=== PATIENT | female | born 1965 | race Caucasian/White ===

== ENCOUNTER → 2017-09-22 09:26 | Outpatient (CLI) | payer BC, SELFPAY ==
--- NOTE | 2017-09-22 09:31 | RAD_ITS ---
STUDY: X-RAY - CERVICAL SPINE REASON FOR EXAM: Female, 52 years old. Cervical pain. TECHNIQUE: 6 view(s) of the cervical spine were obtained including oblique views. COMPARISON: None FINDINGS: Normal anterior atlantoaxial articulation. Normal odontoid process. There is straightening of the normal cervical lordosis. Disc space narrowing and anterior spondylosis at the C5-C6 and C6-C7 level. Normal disc space heights. Normal visualized intervertebral neuroforamina. The soft tissue structures are unremarkable. RAD/Cerv Spine 4 or 5 Views IMPRESSION: Straightening of the normal cervical lordosis. Spondylosis and disc space narrowing at the C5-C6 and C6-C7 levels. Electronically Signed: Elias Constantino MD at 14:16 EST Tel [phone], Service support ,
--- NOTE | 2017-09-22 09:31 | RAD_ITS ---
STUDY: X-RAY - RIGHT SHOULDER REASON FOR EXAM: Female, 52 years old. Shoulder pain. TECHNIQUE: 4 view(s) of the shoulder. COMPARISON: None. FINDINGS: Normal glenohumeral articulation. Normal acromioclavicular joint. Normal acromion. Normal humeral head and visualized proximal humerus. The soft tissue structures are unremarkable. Normal visualized pulmonary apex. RAD/Shoulder min 2 Views IMPRESSION: Normal x-ray examination of the shoulder. Electronically Signed: Elias Constantino MD at 14:17 EST Tel [phone], Service support ,
== END ==
PROVIDERS: Family Provider Student in an Organized Health Care Education/Training Program; PCP Student in an Organized Health Care Education/Training Program; Visit Provider Nurse Practitioner Family
DX: M54.2 Cervicalgia (principal); M25.519 Pain in unspecified shoulder
CPT/HCPCS: 72050; 73030

== ENCOUNTER → 2017-11-22 08:10 | Outpatient (CLI) | payer BC, SELFPAY ==
--- NOTE | 2017-11-22 08:18 | RAD_ITS ---
STUDY: X-RAY - LUMBAR SPINE REASON FOR EXAM: Female, 52 years old. Low back pain TECHNIQUE: 5 view(s) of the lumbar spine were obtained. COMPARISON: None FINDINGS: Normal lumbar lordosis. There is no substantial scoliosis. There is a normal alignment of the vertebrae. Normal vertebral bodies and mild sclerosis of the endplates with anterior spurring L1-2, less T12-L1, L2-L3. Normal disc space heights. Mild facet sclerosis L4-5, 5 S1. The soft tissue structures are unremarkable. RAD/L/S Spine Min 4 Views IMPRESSION: Degenerative changes as above. Electronically Signed: Génesis Celestin MD at 2:51 EDT , Service support ,
== END ==
PROVIDERS: Family Provider Student in an Organized Health Care Education/Training Program; PCP Student in an Organized Health Care Education/Training Program; Visit Provider Nurse Practitioner Family
DX: M54.5 Low back pain (principal)
CPT/HCPCS: 72110

== ENCOUNTER → 2018-05-25 11:40 | Outpatient (CLI) | payer BC, SELFPAY ==
[2018-05-25 14:05] LABS: Absolute Lymphocyte Count 1.57 X10^3/ul (0.83-4.51); Absolute Neutrophil Count 4.3 X10^3/uL (2.0-7.7); Basophil# 0.01 X10^3/uL; Basophil% 0.1 % (0-1); Eosinophil# 0.84 X10^3/uL; Eosinophils% 11.7 % (0-5); Hematocrit 40.2 % (37-47); Hemoglobin 12.4 g/dl (12.0-15.0); Lymphocyte # 1.57 X10^3/ul (4.0); Lymphocyte % 21.8 % (19-41); Mean Corp Hgb Conc 30.8 g/gl (32-36); Mean Corpuscular Hgb 28.4 pg (27.0-32.0); Mean Corpuscular Volume 92.2 fL (81-99); Mean Platelet Vol. 11.1 fl (6.2-12.0); Monocyte# 0.48 X10^3/uL; Monocyte% 6.7 % (0-10); Neutrophil # 4.29 X10^3/uL (2.7-7.7); Neutrophil % 59.4 % (47-70); Platelet Count 277 K/mm3 (150-450); RBC Distribution Width CV 13.5 % (11.6-14.6); Red Blood Count 4.36 M/mm3 (4.2-5.4); White Blood Count 7.2 K/mm3 (4.4-11.0)
[2018-05-25 14:06] LABS: POSITIVE COUNT NO; POSITIVE DIFFERENTIAL NO; POSITIVE MORPHOLOGY NO
[2018-05-25 14:48] LABS: ALB/GLOB Ratio 1.1 RATIO (0.9-2.4); AST(SGOT) 11 U/L (15-37); Alanine Aminotransfer ALT/SGPT 23 U/L (13-56); Albumin, Serum 3.9 g/dL (3.2-5.0); Alkaline Phosphatase 96 U/L (45-117); Anion Gap 7 (5-15); BUN 32 mg/dL (7-18); BUN/Creat Ratio 30.2 RATIO (10-20); Calcium,Total 9.2 mg/dL (8.5-10.1); Chloride 107 mmol/L (98-107); Creatinine, Serum 1.06 mg/dL (0.55-1.02); EST Glomerular Filtration Rate 58 mL/min (>60); Est Glom Filt Rate - Afr Amer 70 mL/min (>60); Globulin 3.6 g/dL (2.2-4.2); Glucose 94 mg/dL (74-106); Potassium 4.7 mmol/L (3.5-5.1); Protein, Total 7.5 g/dL (6.4-8.2); Sodium Level 142 mmol/L (136-145)
== END ==
PROVIDERS: Family Provider Student in an Organized Health Care Education/Training Program; PCP Student in an Organized Health Care Education/Training Program; Referring Provider Internal Medicine Rheumatology; Visit Provider Internal Medicine Rheumatology
DX: M06.4 Inflammatory polyarthropathy (principal); M79.7 Fibromyalgia; E11.9 Type 2 diabetes mellitus without complications; I10 Essential (primary) hypertension; M19.071 Primary osteoarthritis, right ankle and foot; Q66.7 Congenital pes cavus; K76.0 Fatty (change of) liver, not elsewhere classified
CPT/HCPCS: 36415; 80053; 85025

== ENCOUNTER → 2018-09-13 10:30 | Outpatient (CLI) | payer BC, SELFPAY ==
[2016-10-05 10:55] VITALS: BMI 31.0
[2018-09-13 12:48] LABS: ALB/GLOB Ratio 1.2 RATIO (0.9-2.4); AST(SGOT) 14 U/L (15-37); Alanine Aminotransfer ALT/SGPT 24 U/L (13-56); Albumin, Serum 4.1 g/dL (3.2-5.0); Alkaline Phosphatase 83 U/L (45-117); Anion Gap 9 (5-15); BUN 27 mg/dL (7-18); BUN/Creat Ratio 29.1 RATIO (10-20); Calcium,Total 9.3 mg/dL (8.5-10.1); Chloride 105 mmol/L (98-107); Creatinine, Serum 0.93 mg/dL (0.55-1.02); EST Glomerular Filtration Rate 67 mL/min (>60); Est Glom Filt Rate - Afr Amer 81 mL/min (>60); Globulin 3.5 g/dL (2.2-4.2); Glucose 83 mg/dL (74-106); Potassium 4.5 mmol/L (3.5-5.1); Protein, Total 7.6 g/dL (6.4-8.2); Sodium Level 141 mmol/L (136-145)
[2018-09-13 13:06] LABS: Absolute Neutrophil Count 2.6 X10^3/uL (2.0-7.7); Basophil# 0.02 X10^3/uL; Basophil% 0.4 % (0-1); Eosinophils% 15.3 % (0-5); Hematocrit 38.6 % (37-47); Hemoglobin 12.1 g/dl (12.0-15.0); Lymphocyte % 28.6 % (19-41); Mean Corp Hgb Conc 31.3 g/gl (32-36); Mean Corpuscular Hgb 29.2 pg (27.0-32.0); Mean Platelet Vol. 11.4 fl (6.2-12.0); Monocyte# 0.35 X10^3/uL; Monocyte% 6.7 % (0-10); Neutrophil # 2.56 X10^3/uL (2.7-7.7); Neutrophil % 48.8 % (47-70); Platelet Count 217 K/mm3 (150-450); RBC Distribution Width CV 13.1 % (11.6-14.6); Red Blood Count 4.15 M/mm3 (4.2-5.4); White Blood Count 5.2 K/mm3 (4.4-11.0)
[2018-09-13 13:07] LABS: POSITIVE COUNT NO; POSITIVE DIFFERENTIAL NO; POSITIVE MORPHOLOGY NO
== END ==
PROVIDERS: Family Provider Student in an Organized Health Care Education/Training Program; PCP Student in an Organized Health Care Education/Training Program; Referring Provider Internal Medicine Rheumatology; Visit Provider Internal Medicine Rheumatology
DX: M06.09 Rheumatoid arthritis without rheumatoid factor, multiple sites (principal); M79.7 Fibromyalgia; M19.071 Primary osteoarthritis, right ankle and foot; Q66.7 Congenital pes cavus; K76.0 Fatty (change of) liver, not elsewhere classified; I10 Essential (primary) hypertension; E11.9 Type 2 diabetes mellitus without complications; Z79.899 Other long term (current) drug therapy
CPT/HCPCS: 36415; 80053; 85025

== ENCOUNTER → 2018-12-28 15:28 | Outpatient (CLI) | payer BC, SELFPAY ==
[2016-10-05 10:55] VITALS: BMI 31.0
[2018-12-28 17:23] LABS: Absolute Lymphocyte Count 1.86 X10^3/ul (0.83-4.51); Absolute Neutrophil Count 2.7 X10^3/uL (2.0-7.7); Basophil# 0.02 X10^3/uL; Basophil% 0.3 % (0-1); Eosinophil# 0.81 X10^3/uL; Eosinophils% 14.1 % (0-5); Hematocrit 36.3 % (37-47); Hemoglobin 11.3 g/dl (12.0-15.0); Lymphocyte # 1.86 X10^3/ul (4.0); Lymphocyte % 32.5 % (19-41); Mean Corp Hgb Conc 31.1 g/gl (32-36); Mean Corpuscular Hgb 27.8 pg (27.0-32.0); Mean Corpuscular Volume 89.2 fL (81-99); Mean Platelet Vol. 10.8 fl (6.2-12.0); Monocyte# 0.34 X10^3/uL; Monocyte% 5.9 % (0-10); Neutrophil % 47.2 % (47-70); Platelet Count 229 K/mm3 (150-450); RBC Distribution Width CV 12.7 % (11.6-14.6); RBC Distribution Width SD 40.6 fl (35.1-43.9); Red Blood Count 4.07 M/mm3 (4.2-5.4); White Blood Count 5.7 K/mm3 (4.4-11.0)
[2018-12-28 17:26] LABS: POSITIVE COUNT NO; POSITIVE DIFFERENTIAL NO; POSITIVE MORPHOLOGY NO
[2018-12-28 17:47] LABS: ALB/GLOB Ratio 1.1 RATIO (0.9-2.4); AST(SGOT) 21 U/L (15-37); Alanine Aminotransfer ALT/SGPT 28 U/L (13-56); Albumin, Serum 3.7 g/dL (3.2-5.0); Alkaline Phosphatase 99 U/L (45-117); Anion Gap 6 (5-15); BUN 28 mg/dL (7-18); BUN/Creat Ratio 23.3 RATIO (10-20); Calcium,Total 8.6 mg/dL (8.5-10.1); Chloride 103 mmol/L (98-107); EST Glomerular Filtration Rate 50 mL/min (>60); Est Glom Filt Rate - Afr Amer 60 mL/min (>60); Globulin 3.4 g/dL (2.2-4.2); Glucose 180 mg/dL (74-106); Potassium 4.1 mmol/L (3.5-5.1); Protein, Total 7.1 g/dL (6.4-8.2); Sodium Level 136 mmol/L (136-145)
== END ==
PROVIDERS: Family Provider Student in an Organized Health Care Education/Training Program; PCP Student in an Organized Health Care Education/Training Program; Referring Provider Internal Medicine Rheumatology; Visit Provider Internal Medicine Rheumatology
DX: M06.09 Rheumatoid arthritis without rheumatoid factor, multiple sites (principal); Z79.899 Other long term (current) drug therapy; M79.7 Fibromyalgia; M19.071 Primary osteoarthritis, right ankle and foot; Q66.7 Congenital pes cavus; K76.0 Fatty (change of) liver, not elsewhere classified; I10 Essential (primary) hypertension; E11.9 Type 2 diabetes mellitus without complications
CPT/HCPCS: 36415; 80053; 85025

== ENCOUNTER → 2019-03-14 09:50 | Outpatient (CLI) | payer BC, SELFPAY ==
[2016-10-05 10:55] VITALS: BMI 31.0
[2019-03-14 12:18] LABS: Absolute Lymphocyte Count 1.99 X10^3/uL (0.83-4.51); Basophil% 0.4 % (0-1); Eosinophils% 1.8 % (0-5); Hematocrit 37.3 % (37-47); Lymphocyte # 1.99 X10^3/ul (4.0); Lymphocyte % 36.4 % (19-41); Mean Corp Hgb Conc 32.2 g/dL (32-36); Mean Corpuscular Hgb 29.2 pg (27.0-32.0); Mean Corpuscular Volume 90.8 fL (81-99); Mean Platelet Vol. 11.1 fl (6.2-12.0); Monocyte# 0.32 X10^3/uL; Monocyte% 5.9 % (0-10); Neutrophil # 3.01 X10^3/uL (2.7-7.7); Platelet Count 212 K/mm3 (150-450); RBC Distribution Width SD 43.1 fl (35.1-43.9); Red Blood Count 4.11 M/mm3 (4.2-5.4); White Blood Count 5.5 K/mm3 (4.4-11.0)
[2019-03-14 12:19] LABS: Basophil# 0.02 X10^3/uL; NRBC Flagged by Analyzer 0 % (0-5)
[2019-03-14 12:44] LABS: AST(SGOT) 23 U/L (15-37); Alanine Aminotransfer ALT/SGPT 32 U/L (13-56); Albumin, Serum 3.7 g/dL (3.2-5.0); Alkaline Phosphatase 81 U/L (45-117); Anion Gap 8 (5-15); BUN 18 mg/dL (7-18); BUN/Creat Ratio 16.7 RATIO (10-20); Calcium,Total 9.5 mg/dL (8.5-10.1); Chloride 102 mmol/L (98-107); Creatinine, Serum 1.08 mg/dL (0.55-1.02); EST Glomerular Filtration Rate 56 mL/min (>60); Est Glom Filt Rate - Afr Amer 68 mL/min (>60); Globulin 3.6 g/dL (2.2-4.2); Glucose 92 mg/dL (74-106); Potassium 4.5 mmol/L (3.5-5.1); Protein, Total 7.3 g/dL (6.4-8.2); Sodium Level 139 mmol/L (136-145)
== END ==
PROVIDERS: Family Provider Student in an Organized Health Care Education/Training Program; PCP Student in an Organized Health Care Education/Training Program; Referring Provider Internal Medicine Rheumatology; Visit Provider Internal Medicine Rheumatology
DX: M06.09 Rheumatoid arthritis without rheumatoid factor, multiple sites (principal); M19.071 Primary osteoarthritis, right ankle and foot; M79.7 Fibromyalgia; Q66.7 Congenital pes cavus; K76.0 Fatty (change of) liver, not elsewhere classified; E11.9 Type 2 diabetes mellitus without complications; I10 Essential (primary) hypertension; Z79.899 Other long term (current) drug therapy
CPT/HCPCS: 36415; 80053; 85025

== ENCOUNTER → 2022-01-04 | Outpatient (CLI) | payer OTHER, SELFPAY ==
[2022-01-04 12:31] LABS: Absolute Lymphocyte Count 1.79 X10^3/uL (0.83-4.51); Absolute Neutrophil Count 3.4 X10^3/uL (2.0-7.7); Basophil# 0.04 X10^3/uL; Basophil% 0.7 % (0-1); Eosinophil# 0.11 X10^3/uL; Eosinophils% 1.9 % (0-5); Hematocrit 37.9 % (37-47); Hemoglobin 11.6 g/dL (12.0-15.0); Lymphocyte # 1.79 X10^3/ul (0.83-4.51); Lymphocyte % 31.1 % (19-41); Mean Corp Hgb Conc 30.6 g/dL (32-36); Mean Corpuscular Hgb 28.7 pg (27.0-32.0); Mean Corpuscular Volume 93.8 fL (81-99); Mean Platelet Vol. 11.1 fl (6.2-12.0); Monocyte# 0.35 X10^3/uL; Monocyte% 6.1 % (0-10); NRBC Flagged by Analyzer 0 % (0-5); Neutrophil # 3.44 X10^3/uL (2.7-7.7); Neutrophil % 59.9 % (47-70); Platelet Count 246 K/mm3 (150-450); RBC Distribution Width CV 13.2 % (11.6-14.6); RBC Distribution Width SD 45.5 fl (35.1-43.9); Red Blood Count 4.04 M/mm3 (4.2-5.4); White Blood Count 5.8 K/mm3 (4.4-11.0)
[2022-01-04 12:52] LABS: AST(SGOT) 15 U/L (15-37); Alanine Aminotransfer ALT/SGPT 25 U/L (13-56); Albumin, Serum 3.7 g/dL (3.2-5.0); Alkaline Phosphatase 68 U/L (45-117); Anion Gap 4 (5-15); BUN 37 mg/dL (7-18); BUN/Creat Ratio 26.6 RATIO (10-20); Calcium,Total 9.4 mg/dL (8.5-10.1); Chloride 107 mmol/L (98-107); Creatinine, Serum 1.39 mg/dL (0.55-1.02); EST Glomerular Filtration Rate 42 mL/min (>60); Est Glom Filt Rate - Afr Amer 50 mL/min (>60); Globulin 3.6 g/dL (2.2-4.2); Glucose 84 mg/dL (74-106); Potassium 4.4 mmol/L (3.5-5.1); Protein, Total 7.3 g/dL (6.4-8.2); Sodium Level 140 mmol/L (136-145)
== END | disposition home or self-care (01) ==
LOC: MTLAB 10:06
PROVIDERS: PCP Student in an Organized Health Care Education/Training Program; Referring Provider Internal Medicine Rheumatology; Visit Provider Internal Medicine Rheumatology
DX: M06.09 Rheumatoid arthritis without rheumatoid factor, multiple sites (principal); E11.9 Type 2 diabetes mellitus without complications; M79.7 Fibromyalgia; M77.11 Lateral epicondylitis, right elbow; M19.071 Primary osteoarthritis, right ankle and foot; Q66.70 Congenital pes cavus, unspecified foot; K76.0 Fatty (change of) liver, not elsewhere classified; I10 Essential (primary) hypertension; Z79.899 Other long term (current) drug therapy
CPT/HCPCS: 36415; 80053; 85025

== ENCOUNTER → 2022-02-14 | Outpatient (CLI) | payer OTHER, SELFPAY ==
[2022-02-14 12:48] LABS: ALB/GLOB Ratio 1.2 RATIO (0.9-2.4); AST(SGOT) 19 U/L (15-37); Alanine Aminotransfer ALT/SGPT 24 U/L (13-56); Albumin, Serum 3.7 g/dL (3.2-5.0); Alkaline Phosphatase 69 U/L (45-117); Anion Gap 5 (5-15); BUN 19 mg/dL (7-18); BUN/Creat Ratio 14.8 RATIO (10-20); Calcium,Total 8.9 mg/dL (8.5-10.1); Chloride 108 mmol/L (98-107); Creatinine, Serum 1.28 mg/dL (0.55-1.02); EST Glomerular Filtration Rate 46 mL/min (>60); Est Glom Filt Rate - Afr Amer 55 mL/min (>60); Globulin 3.2 g/dL (2.2-4.2); Glucose 92 mg/dL (74-106); Protein, Total 6.9 g/dL (6.4-8.2); Sodium Level 141 mmol/L (136-145)
== END | disposition home or self-care (01) ==
PROVIDERS: PCP Student in an Organized Health Care Education/Training Program; Referring Provider Internal Medicine Rheumatology; Visit Provider Internal Medicine Rheumatology
DX: M06.09 Rheumatoid arthritis without rheumatoid factor, multiple sites (principal); E11.9 Type 2 diabetes mellitus without complications; M79.7 Fibromyalgia; M77.11 Lateral epicondylitis, right elbow; M19.071 Primary osteoarthritis, right ankle and foot; Q66.70 Congenital pes cavus, unspecified foot; K76.0 Fatty (change of) liver, not elsewhere classified; I10 Essential (primary) hypertension; Z79.899 Other long term (current) drug therapy
CPT/HCPCS: 36415; 80053

== ENCOUNTER 2022-04-25 13:08 | Emergency (ER) | payer OTHER, SELFPAY ==
[2022-04-25 13:10] VITALS: BP 168/62; PULSE 98; RESP 15; TEMP 36.5; O2SAT 99; BMI 32.3
[2022-04-25 13:12] VITALS: BP 168/62; PULSE 98; RESP 15; TEMP 36.5; O2SAT 99
--- NOTE | 2022-04-25 15:00 | EKG12_ITS ---
Test Reason : DIAHREA Blood Pressure : / mmHG Vent. Rate : 099 BPM Atrial Rate : 099 BPM P-R Int : 158 ms QRS Dur : 080 ms QT Int : 342 ms P-R-T Axes : 023 003 032 degrees QTc Int : 438 ms Normal sinus rhythm Normal ECG Confirmed by LANDRY TRINIDAD, VANNESSA ([id number]), legal editor FELIPE SOLOMON ([id number]) on 04/27/2022 10:55:55 AM Referred By: Confirmed By:VANNESSA ALATORRE MD
--- NOTE | 2022-04-25 15:01 | EX.ED.DYSGE1 ---
HPI History of Present Illness Chief Complaint: Diarrhea Detail of Chief Complaint: Documented fever to 103.0 ?F Informant: patient Onset/Context/Timing Onset: Days (Onset of illness April 19) Context: Onset with activity and Sudden Onset Timing: Intermittent Quality: Waxing and waning fever. Myalgias arthralgias and headache Location: Generalized Current Severity: Mild Maximum Severity: Severe Worsened by: Nothing Relieved by: Nothing Associated Symptoms Associated Symptoms: Myalgias arthralgias and nausea and vomiting x2 Narrative Narrative: Patient is a 57-year-old woman whose had document temperature 103.0 ?F. She has chronic diarrhea. That is not her chief complaint. She vomited at the onset of illness and vomited once today. She does complain of bitemporal headache. She denies double vision, blurred vision loss of vision. [place] photophobia. She does have neck pain secondary to surgery. The pain is no different. She does report port roaring in her ears. This is been intermittent for the past 3 years. She also describes symptoms consistent with benign positional vertigo. She denies rhinorrhea, congestion postnasal drainage. Denies sore throat. She denies cough or shortness of breath. Denies chest pain. She does endorse nausea vomiting as previously mentioned. The diarrhea is chronic. There is no blood or mucus in her diarrhea. She denies dysuria, frequency, urgency or hematuria. She did administer her last immunosuppressive meds for rheumatoid on April 19. Fever started afterwards. Patient states has had meningitis in the past. This headache is nowhere near as severe. There are no alleviating or exacerbating factors. Prior similar symptoms: No Recent Illness/Hospitalization: No [facility] Medical History Tibia fracture Home Medications atorvastatin 20 mg tablet 20 mg PO QHS 10/31/15 [History Last Taken 10/30/15 21:00] duloxetine 60 mg capsule,delayed release 60 mg PO DAILY 10/31/15 [History Last Taken 10/30/15 21:00] lisinopril 20 mg-hydrochlorothiazide 12.5 mg tablet (Zestoretic) 1 ea PO DAILY 10/31/15 [History Last Taken 10/30/15 21:00] metformin 1,000 mg tablet 1,000 mg PO BID 10/31/15 [History Last Taken 10/31/15 09:00] insulin glargine U-300 conc 300 unit/mL (1.5 mL) subcutaneous pen (Toujeo SoloStar U-300 Insulin) 44 unit SQ QHS 09/28/16 [History Last Taken Unknown] insulin lispro 100 unit/mL subcutaneous pen (Humalog KwikPen (U-100) Insulin) 10 unit SQ BID 09/28/16 [History Last Taken Unknown] ranitidine HCl 300 mg tablet (Zantac) 300 mg PO PRN PRN Indigestion 09/28/16 [History Last Taken Unknown] acetaminophen 500 mg tablet 1,000 mg PO Q8 10/05/16 [Rx Last Taken Unknown] nut.tx.gluc.intol,lac-free,soy 120 ml PO BID 10/05/16 [Rx Last Taken Unknown] oxycodone 5 mg tablet 5 - 10 mg PO Q4H PRN PRN Pain #60 tabs 10/05/16 [Rx Last Taken Unknown] sulfamethoxazole 800 mg-trimethoprim 160 mg tablet 1 tab PO BID #20 TABLETS 04/25/22 [Rx Last Taken Unknown] Allergy/AdvReac Type Severity Reaction Status Date / Time No Known Allergies Allergy Verified 04/25/22 13:12 Social History (Updated 04/25/22 @ 15:[address] Sergio Salgado MD) household members: spouse Smoking Status: Never smoker substance use type: does not use ROS ROS ED Constitutional Constitutional ED: Reports chills and fever(s); Denies sweats or weight loss Eyes Eyes: Denies blurry vision, change in vision or diplopia ENT ENT ED: Denies ear pain, rhinorrhea or sore throat Cardiovascular Cardiovascular: Denies chest pain or palpitations Respiratory/Chest Respiratory/Chest: Denies cough, dyspnea or dyspnea on exertion Gastrointestinal Gastrointestinal: Reports abdominal pain, diarrhea, nausea and vomiting; Denies constipation or melena Genitourinary Genitourinary ED: Denies dysuria, hematuria or urinary frequency Musculoskeletal Musculoskeletal: Reports neck pain; Denies arthralgias, back pain or myalgias Integumentary Denies Abrasions or rash Neurologic Neurologic: Reports headache(s); Denies paresthesias or weakness Endocrine Endocrinology: Denies cold intolerance or heat intolerance Hematologic/Lymphatic Hematologic/Lymphatic: Denies easy bleeding, easy bruising or lymphadenopathy EXAM Physical Exam Const Vital Signs: 04/25/22 13:10 04/25/22 13:12 04/25/22 15:41 Temperature 97.7 F L 97.7 F L 101.1 F H Temperature Source Temporal Temporal Oral Pulse Rate 98 98 96 Respiratory Rate 15 15 18 Blood Pressure 168/62 H 168/62 H 160/59 H Blood Pressure Mean 97 97 92 Pulse Ox 99 99 98 Oxygen Delivery Method Room Air Room Air Room Air 04/25/22 16:53 Temperature 99.4 F H Temperature Source Oral Pulse Rate 93 Respiratory Rate 18 Blood Pressure 135/60 H Blood Pressure Mean 85 Pulse Ox 95 Oxygen Delivery Method Room Air Positive well nourished, well developed and obese; Negative for cachectic or contractures Constitutional Narrative: Patient does not appear toxic but does appear ill. General Appearance ED: well developed; Negative for cachectic, contractures, cyanotic or diaphoretic Nutritional Appearance: obese; Negative for cachectic HEENT Reports TM's clear and dry mucous membranes HEENT Narrative: Sclera is anicteric. Conjunctive is pink. Extract muscle intact. Pupils equal round reactive. Tympanic Membrane ED: Yes TM's clear Mouth ED: Yes dry mucous membranes Mouth: dry mucous membranes Eyes PERRL and EOMs intact bilaterally General Eye ED: Negative for pale conjunctiva or scleral icterus Neck no lymphadenopathy, supple and no JVD Resp normal respiratory effort and clear to auscultation bilaterally Cardio regular rate, regular rhythm, S1 normal heart sound, S2 normal heart sound and no murmurs GI normal to inspection, nondistended, normoactive bowel sounds, non-tender, non-distended and no masses; Negative for hepatosplenomegaly Back/Spine no CVA tenderness Extremity normal to inspection General Extremety ED: Negative for edema or tenderness General Extremity: Negative for edema Neuro oriented x3, CN's II-XII intact bilaterally and no sensory deficits noted Sensorium / Orientation: alert Motor Exam: strength 5/5 throughout Psych mental status grossly normal Skin no rashes or lesions noted, no wounds and skin turgor normal MDM MDM MDM Narrative Medical decision making narrative: With documented fever more than 1 occasion on immunosuppressive meds infectious work-up was undertaken to determine etiology. She is also had myalgias arthralgias and fevers because of her rheumatoid arthritis. For this reason we will obtain an ESR. Patient does have history of insulin-dependent diabetes as well as hypertension. She states she has not taken her antihypertensive meds today and believes this may be the cause of her headache. Blood work was obtained to assess for anemia, determine white count, determine renal function and electrolytes. Chest x-ray is obtained to evaluate for pneumonia even though there were no abnormal auscultatory findings. Lab Data Attestation: I reviewed the patient's lab results. Lab results narrative: White count is normal. Coags are normal. There is no evidence of endorgan dysfunction urine is consistent with infection. Patient did receive dose of Rocephin in the emergency department. She was discharged prescription for Bactrim x10 days. She feels comfortable going home. Patient does not meet criteria for full admission. Labs: Laboratory Results - last 24 hr 04/25/22 04/25/22 04/25/22 15:15 15:15 15:15 WBC 10.1 RBC 3.80 L Hgb 11.1 L Hct 34.3 L MCV 90.3 MCH 29.2 MCHC 32.4 RDW Std Deviation 41.4 RDW Coeff of Tabby 12.5 Plt Count 300 MPV 10.4 Immature Gran % (Auto) 0.400 Neut % (Auto) 77.0 H Lymph % (Auto) 13.7 L [place] % (Auto) 8.7 Eos % (Auto) 0.0 Baso % (Auto) 0.2 Absolute Neuts (auto) 7.8 H Absolute Lymphs (auto) 1.39 Nucleated RBC % 0 PT 14.7 INR 1.2 APTT 36.3 H Sodium 134 L Potassium 4.4 Chloride 97 L Carbon Dioxide 26.0 Anion Gap 11 BUN 28 H Creatinine 1.39 H Estim Creat Clear Calc 35.32 Est GFR (MDRD) Af Amer 50 L Est GFR (MDRD) Non-Af 42 L BUN/Creatinine Ratio 20.1 H Glucose 122 H Lactic Acid Calcium 9.4 Total Bilirubin 0.80 AST 27 ALT 25 Alkaline Phosphatase 92 Total Protein 8.2 Albumin 3.1 L Globulin 5.1 H Albumin/Globulin Ratio 0.6 L Urine Color Urine Clarity Urine pH Ur Specific [place] Urine Protein Urine Glucose (UA) Urine Ketones Urine Occult Blood Urine Nitrite Urine Bilirubin Urine Urobilinogen Ur Leukocyte Esterase Urine RBC Urine WBC Ur Squamous Epith Cells Urine Bacteria Urine Mucus 04/25/22 04/25/22 15:15 15:53 WBC RBC Hgb Hct MCV MCH MCHC RDW Std Deviation RDW Coeff of Tabby Plt Count MPV Immature Gran % (Auto) Neut % (Auto) Lymph % (Auto) [place] % (Auto) Eos % (Auto) Baso % (Auto) Absolute Neuts (auto) Absolute Lymphs (auto) Nucleated RBC % PT INR APTT Sodium Potassium Chloride Carbon Dioxide Anion Gap BUN Creatinine Estim Creat Clear Calc Est GFR (MDRD) Af Amer Est GFR (MDRD) Non-Af BUN/Creatinine Ratio Glucose Lactic Acid 1.0 Calcium Total Bilirubin AST ALT Alkaline Phosphatase Total Protein Albumin Globulin Albumin/Globulin Ratio Urine Color Yellow Urine Clarity Clear Urine pH 5.0 Ur Specific [place] 1.025 Urine Protein 30 H Urine Glucose (UA) Normal Urine Ketones 5 H Urine Occult Blood 150 H Urine Nitrite Negative Urine Bilirubin Negative Urine Urobilinogen 1 H Ur Leukocyte Esterase 100 H Urine RBC 0-5 SEEN Urine WBC 5-10 SEEN Ur Squamous Epith Cells 0-5 SEEN Urine Bacteria 3+ Urine Mucus 0 SEEN Radiography Chest X-Ray - ED: 2 View (2 view chest x-ray is independently reviewed and interpreted by me at 08/12/2003 as negative for acute process. Cardiac silhouette and size unremarkable. There is chronic changes noted. Perihilar regions normal. [place] structures are unremarkable.) Diagnostic Testing: Clinical Impression(s) from Imaging Studies Chest X-Ray 04/25/22 15:25 IMPRESSION: Mild bronchovascular prominence. Electronically Signed: Omar Angel MD at 16:08 EDT , EKG Initial EKG: Attestation: I personally reviewed and interpreted this EKG as follows: Interpretation: Sinus Rhythm (The EKG is normal with a ventricular rate of 99. NH interval is 158 ms. Cures duration 80 ms. QT duration 342 ms. [place] is normal) Discharge Plan Triage Chief Complaint: Diarrhea ED Provider: Sergio Salgado Dx/Rx/DC Orders Clinical Impression: Complicated urinary tract infection, Fever, Immunosuppression due to drug therapy, Renal insufficiency Instructions: ED Cystitis Female Adult Prescriptions: New sulfamethoxazole-trimethoprim [sulfamethoxazole-trimethoprim] 800-160 mg tablet 1 tab PO BID Qty: 20 0RF No Action atorvastatin 20 MG tablet 20 mg PO QHS Label Comments: cholestrol lisinopril-hydrochlorothiazide [Zestoretic] 1 EACH tablet 1 ea PO DAILY Label Comments: blood pressure metformin 1,000 MG tablet 1,000 mg PO BID Label Comments: diabetes duloxetine 60 MG capsule 60 mg PO DAILY Label Comments: fibromyalgia insulin lispro [Humalog KwikPen Insulin] 100 UNIT/ML insulin pen 10 unit SQ BID Label Comments: BREAKFAST AND LUNCH insulin glargine U-300 conc [Toujeo SoloStar U-300 Insulin] 300 UNIT/ML insulin pen 44 unit SQ QHS ranitidine HCl [Zantac] 300 MG tablet 300 mg PO PRN PRN (Reason: Indigestion) acetaminophen 500 MG tablet 1,000 mg PO Q8 0RF oxycodone 5 MG tablet 5 - 10 mg PO Q4H PRN PRN (Reason: Pain) Qty: 60 0RF nut.tx.gluc.intol,lac-free,soy 120 ML liquid 120 ml PO BID 0RF Primary Care Provider: Oscar Bañuelos Referrals: Oscar Bañuelos DO [Primary Care Provider] - 3-5 Days if not improving Activity Restrictions/Additional Instructions: If you have a fever after 48 hours, return to the emergency department. If you feel worse, return to the emergency department. Disposition Disposition: Home, Self Care
[2022-04-25] MEDS: Ondansetron 4 MG/2 ML Vial IV (15:13)
--- NOTE | 2022-04-25 15:25 | RAD_ITS ---
INDICATION: Fever immune suppressed patient EXAMINATION/TECHNIQUE: X-RAY - XR Chest 2 Views COMPARISON: 01/25/2013. FINDINGS: Poor inspiratory effort is seen. Internal fixation of the lower cervical spine, surgical clips are seen superimposed over the right upper lung field. LINES/DEVICES: None. LUNGS: Peribronchial cuffing and bilateral hilar prominence is seen with subtle patchy air space opacification is seen No consolidation, edema or effusion. No pneumothorax. MEDIASTINUM AND CARDIOVASCULAR STRUCTURES: Cardiac silhouette not enlarged. Central airways and mediastinal contour are unremarkable. BONES AND SOFT TISSUES: Unremarkable. RAD/Chest PA and Lateral IMPRESSION: Mild bronchovascular prominence. Electronically Signed: Omar Angel MD at 16:08 EDT ,
[2022-04-25 15:38] LABS: Absolute Lymphocyte Count 1.39 X10^3/uL (0.83-4.51); Absolute Neutrophil Count 7.8 X10^3/uL (2.0-7.7); Basophil# 0.02 X10^3/uL; Basophil% 0.2 % (0-1); Hematocrit 34.3 % (37-47); Hemoglobin 11.1 g/dL (12.0-15.0); Lymphocyte # 1.39 X10^3/ul (0.83-4.51); Lymphocyte % 13.7 % (19-41); Mean Corp Hgb Conc 32.4 g/dL (32-36); Mean Corpuscular Hgb 29.2 pg (27.0-32.0); Mean Corpuscular Volume 90.3 fL (81-99); Mean Platelet Vol. 10.4 fl (6.2-12.0); Monocyte# 0.88 X10^3/uL; Monocyte% 8.7 % (0-10); NRBC Flagged by Analyzer 0 % (0-5); Neutrophil # 7.78 X10^3/uL (2.7-7.7); Platelet Count 300 K/mm3 (150-450); RBC Distribution Width CV 12.5 % (11.6-14.6); RBC Distribution Width SD 41.4 fl (35.1-43.9); White Blood Count 10.1 K/mm3 (4.4-11.0)
[2022-04-25 15:41] VITALS: BP 160/59; PULSE 96; RESP 18; TEMP 38.4; O2SAT 98
[2022-04-25 15:52] LABS: ALB/GLOB Ratio 0.6 RATIO (0.9-2.4); AST(SGOT) 27 U/L (15-37); Alanine Aminotransfer ALT/SGPT 25 U/L (13-56); Albumin, Serum 3.1 g/dL (3.2-5.0); Alkaline Phosphatase 92 U/L (45-117); Anion Gap 11 (5-15); BUN 28 mg/dL (7-18); BUN/Creat Ratio 20.1 RATIO (10-20); Calcium,Total 9.4 mg/dL (8.5-10.1); Chloride 97 mmol/L (98-107); Creatinine, Serum 1.39 mg/dL (0.55-1.02); EST Glomerular Filtration Rate 42 mL/min (>60); Est Glom Filt Rate - Afr Amer 50 mL/min (>60); Estimated Creatinine Clearance 35.32 ml/min; Globulin 5.1 g/dL (2.2-4.2); Glucose 122 mg/dL (74-106); Potassium 4.4 mmol/L (3.5-5.1); Protein, Total 8.2 g/dL (6.4-8.2); Sodium Level 134 mmol/L (136-145)
[2022-04-25] MEDS: HYDROcodone Bitartrate/Apap 5/325 Tablet PO (15:56)
[2022-04-25 15:57] LABS: Mucous, Urine 0 SEEN /hpf (<or=2+)
[2022-04-25 16:02] LABS: International Normalized Ratio 1.2; Prothrombin Time (Protime)PT. 14.7 SECONDS (11.7-14.9)
[2022-04-25 16:03] LABS: Partial Thromboplast Time 36.3 Seconds (24.1-36.2)
[2022-04-25 16:09] LABS: Color, Urine Yellow (Yellow); Glucose, Dipstick Normal (Normal); Ketone-Dipstick 5 mg/dl (Negative); Leukocyte Esterase-Dipstick 100 /ul (Negative); Nitrite-Dipstick Negative (Negative); Occult Blood-Urine 150 /ul (Negative); Protein-Dipstick 30 mg/dl (Negative); Specific Gravity, Urine 1.025 (1.002-1.030); Urine Bilirubin Dipstick Negative (Negative); Urine Clarity Clear (Clear); Urine Urobilinogen 1 mg/dl (Normal)
[2022-04-25 16:34] LABS: Bacteria 3+ /hpf (None Seen); Red Blood Cells-Urine 0-5 SEEN /hpf (0-5); Squamous Epithelial Cells - UA 0-5 SEEN /hpf (5-10); White Blood Cells 5-10 SEEN /hpf (0-5)
[2022-04-25] MEDS: Ceftriaxone 1 GM/50 ML BAG IV (16:51)
[2022-04-25 16:53] VITALS: BP 135/60; PULSE 93; RESP 18; TEMP 37.4; O2SAT 95
== END 2022-04-25 17:43 | disposition home or self-care (01) ==
PROVIDERS: Emergency Provider Emergency Medicine; PCP Student in an Organized Health Care Education/Training Program; Visit Provider Emergency Medicine
DX: N39.0 Urinary tract infection, site not specified (principal); D84.821 Immunodeficiency due to drugs; M06.9 Rheumatoid arthritis, unspecified; E10.9 Type 1 diabetes mellitus without complications; Z79.4 Long term (current) use of insulin; N28.9 Disorder of kidney and ureter, unspecified; I10 Essential (primary) hypertension; Z79.84 Long term (current) use of oral hypoglycemic drugs; Z79.899 Other long term (current) drug therapy
CPT/HCPCS: 36415; 71046; 80053; 81001; 83605; 85025; 85610; 85730; 87040; 87077; 87086; 87088; 87186; 93005; 96361; 96365; 96375; 99285; J2405

== ENCOUNTER → 2022-06-16 | Outpatient (CLI) | payer OTHER, SELFPAY ==
[2022-06-16 13:24] LABS: ALB/GLOB Ratio 1.1 RATIO (0.9-2.4); AST(SGOT) 16 U/L (15-37); Alanine Aminotransfer ALT/SGPT 22 U/L (13-56); Albumin, Serum 3.7 g/dL (3.2-5.0); Alkaline Phosphatase 111 U/L (45-117); Anion Gap 6 (5-15); BUN 19 mg/dL (7-18); BUN/Creat Ratio 15.6 RATIO (10-20); Calcium,Total 9.3 mg/dL (8.5-10.1); Chloride 105 mmol/L (98-107); Creatinine, Serum 1.22 mg/dL (0.55-1.02); EST Glomerular Filtration Rate 48 mL/min (>60); Est Glom Filt Rate - Afr Amer 58 mL/min (>60); Globulin 3.5 g/dL (2.2-4.2); Glucose 185 mg/dL (74-106); Potassium 5.2 mmol/L (3.5-5.1); Protein, Total 7.2 g/dL (6.4-8.2); Sodium Level 139 mmol/L (136-145)
== END | disposition home or self-care (01) ==
LOC: MTLAB 10:01
PROVIDERS: PCP Student in an Organized Health Care Education/Training Program; Referring Provider Internal Medicine Rheumatology; Visit Provider Internal Medicine Rheumatology
DX: M06.09 Rheumatoid arthritis without rheumatoid factor, multiple sites (principal); E11.9 Type 2 diabetes mellitus without complications; Z79.899 Other long term (current) drug therapy; M79.7 Fibromyalgia; M77.11 Lateral epicondylitis, right elbow; M19.071 Primary osteoarthritis, right ankle and foot; Q66.70 Congenital pes cavus, unspecified foot; K76.0 Fatty (change of) liver, not elsewhere classified; I10 Essential (primary) hypertension
CPT/HCPCS: 36415; 80053

== ENCOUNTER 2023-01-23 12:35 | Emergency (ER) | payer OTHER, SELFPAY ==
[2023-01-23 12:38] VITALS: BP 142/74; PULSE 88; RESP 16; TEMP 35.9; O2SAT 96; BMI 33.0
[2023-01-23] MEDS: 0.9% Normal Saline 1,000 ML 1000 ML IV (13:30)
[2023-01-23 13:40] VITALS: BP 118/59; BP 126/61; BP 99/51; PULSE 80; PULSE 83; PULSE 91
[2023-01-23 13:47] LABS: Absolute Lymphocyte Count 2.05 X10^3/uL (0.83-4.51); Absolute Neutrophil Count 4.5 X10^3/uL (2.0-7.7); Basophil# 0.03 X10^3/uL; Basophil% 0.4 % (0-1); Eosinophil# 0.01 X10^3/uL; Eosinophils% 0.1 % (0-5); Hematocrit 39.5 % (37-47); Hemoglobin 12.4 g/dL (12.0-15.0); Lymphocyte # 2.05 X10^3/ul (0.83-4.51); Lymphocyte % 28.6 % (19-41); Mean Corp Hgb Conc 31.4 g/dL (32-36); Mean Corpuscular Hgb 28.4 pg (27.0-32.0); Mean Corpuscular Volume 90.6 fL (81-99); Mean Platelet Vol. 10.4 fl (6.2-12.0); Monocyte# 0.62 X10^3/uL; Monocyte% 8.6 % (0-10); NRBC Flagged by Analyzer 0 % (0-5); Neutrophil # 4.45 X10^3/uL (2.7-7.7); Neutrophil % 62.2 % (47-70); Platelet Count 236 K/mm3 (150-450); RBC Distribution Width CV 13.2 % (11.6-14.6); RBC Distribution Width SD 43.8 fl (35.1-43.9); Red Blood Count 4.36 M/mm3 (4.2-5.4); White Blood Count 7.2 K/mm3 (4.4-11.0)
[2023-01-23 13:57] LABS: Anion Gap 8 (5-15); BUN 35 mg/dL (7-18); BUN/Creat Ratio 23.6 RATIO (10-20); Calcium,Total 10.1 mg/dL (8.5-10.1); Chloride 107 mmol/L (98-107); Creatinine, Serum 1.48 mg/dL (0.55-1.02); EST Glomerular Filtration Rate 39 mL/min (>60); Est Glom Filt Rate - Afr Amer 47 mL/min (>60); Estimated Creatinine Clearance 33.17 ml/min; Glucose 89 mg/dL (74-106); Potassium 4.7 mmol/L (3.5-5.1); Sodium Level 139 mmol/L (136-145)
[2023-01-23 14:00] LABS: Bacteria 0 SEEN /hpf (None Seen); Mucous, Urine 0 SEEN /hpf (<or=2+); Red Blood Cells-Urine 0 SEEN /hpf (0-5); White Blood Cells 0 SEEN /hpf (0-5)
[2023-01-23 14:14] LABS: Color, Urine Yellow (Yellow); Glucose, Dipstick Normal (Normal); Ketone-Dipstick Negative (Negative); Leukocyte Esterase-Dipstick Negative /ul (Negative); Nitrite-Dipstick Negative (Negative); Occult Blood-Urine Negative /ul (Negative); Protein-Dipstick Negative (Negative); Specific Gravity, Urine 1.015 (1.002-1.030); Urine Bilirubin Dipstick Negative (Negative); Urine Clarity Clear (Clear); Urine Urobilinogen Normal (Normal)
[2023-01-23 14:22] LABS: Squamous Epithelial Cells - UA 0-5 SEEN /hpf (5-10)
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
[2023-01-23 15:19] VITALS: BP 121/52; PULSE 80; RESP 18; O2SAT 95
[2023-01-23 16:02] VITALS: BP 104/64; PULSE 16; O2SAT 78
[2023-01-24 07:11] LABS: Bedside Glucose 116 mg/dL (74-106)
== END 2023-01-23 16:04 | disposition home or self-care (01) ==
PROVIDERS: Emergency Provider Emergency Medicine; PCP Student in an Organized Health Care Education/Training Program; Visit Provider Emergency Medicine
DX: R55 Syncope and collapse (principal); E11.9 Type 2 diabetes mellitus without complications; Z79.4 Long term (current) use of insulin; I10 Essential (primary) hypertension; M79.7 Fibromyalgia; E66.9 Obesity, unspecified; Z68.33 Body mass index [BMI] 33.0-33.9, adult; Z79.84 Long term (current) use of oral hypoglycemic drugs; Z79.899 Other long term (current) drug therapy
CPT/HCPCS: 80048; 81001; 82962; 85025; 87086; 87088; 93005; 96360; 99284; J7030

== ENCOUNTER 2024-04-04 10:26 | Day surgery (SDC) | payer OTHER, SELFPAY ==
[2024-04-04] VITALS (9 sets, daily range): BP systolic 115–123; BP diastolic 53–64; PULSE 75–91; RESP 16–18; TEMP 35.9–36.3; O2SAT 96–100; BMI 23.1
[2024-04-04] MEDS: Lactated Ringers 1,000 ML 15 ML IV (11:07)
[2024-04-04 11:09] LABS: Hematocrit 33.2 % (37-47); Hemoglobin 10.2 g/dL (12.0-15.0); Mean Corp Hgb Conc 30.7 g/dL (32-36); Mean Corpuscular Hgb 28.3 pg (27.0-32.0); Mean Corpuscular Volume 92.2 fL (81-99); Mean Platelet Vol. 10.9 fl (6.2-12.0); Platelet Count 184 K/mm3 (150-450); RBC Distribution Width CV 13.4 % (11.6-14.6); RBC Distribution Width SD 45.7 fl (35.1-43.9); White Blood Count 4.6 K/mm3 (4.4-11.0)
[2024-04-04 11:47] LABS: AST(SGOT) 65 U/L (15-37); Alanine Aminotransfer ALT/SGPT 65 U/L (13-56); Albumin, Serum 3.2 g/dL (3.2-5.0); Alkaline Phosphatase 109 U/L (45-117); Anion Gap 5 (5-15); BUN 22 mg/dL (7-18); BUN/Creat Ratio 16.9 RATIO (10-20); Calcium,Total 9.3 mg/dL (8.5-10.1); Chloride 113 mmol/L (98-107); EST Glomerular Filtration Rate 45 mL/min (>60); Est Glom Filt Rate - Afr Amer 54 mL/min (>60); Estimated Creatinine Clearance 36.85 ml/min; Globulin 3.3 g/dL (2.2-4.2); Glucose 98 mg/dL (74-106); Potassium 3.8 mmol/L (3.5-5.1); Protein, Total 6.5 g/dL (6.4-8.2); Sodium Level 141 mmol/L (136-145)
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
--- NOTE | 2024-04-04 12:00 | EMB_PTH ---
PATIENT: MEME [place]OO[place] [facility] [id number] AGE/SX: 59/F ROOM: RE04/04/[address]: Dr. Melisa Carmichael DO : 1965 BED: DIS: 04/04/2024 SPEC #: [id number] RECD: 04/04/24 14:26 STATUS: CHITRA REVikki #: [id number] KEREN: 04/04/24 12:[address]: Melisa Carmichael DEPT: SURGICAL PATHOLOGY RECD BY: Delilah Rodriguez ENTERED: 04/05/24 07:18 SP TYPE: ENDOM BX/C VICENTE DR: Dr. Oscar Bañuelos, DO Tissues: Endometrium, NOS Procedures: Surgery Specimen Level IV HEADER OPERATION: Hysteroscopy, D&C, polypectomy PRE-OP DIAGNOSIS: Endometrial polyp TISSUE SUBMITTED: Endometrial polyp and tissue, endometrial curettings MICROSCOPIC DIAGNOSIS Endometrial polyp, polypectomy and endometrial curettings: Polypoid fragments of endometrial tissue, consistent with fragments of benign endometrial polyp with cystic atrophic changes. Fragments of benign ectocervical epithelium. See comment. Mark 04/09/2024 COMMENT Clinical correlation and appropriate follow up are necessary. Case has been reviewed in consultation with Dr. Smith who concurs with the above diagnosis. IDC:AM MICROSCOPIC DESCRIPTION Slides are reviewed. GROSS DESCRIPTION Received in fixative is one container labeled with the patient's name and designated Endometrial polyp + endometrial curetting tissue. The specimen consists of multiple irregular fragments of dixon soft tissue that in aggregate measure 5.0 x 3.0 x 0.3 cm. The specimen is totally submitted in two cassettes. 04/05/2024 TC:5 CPT:63806
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
--- NOTE | 2024-04-04 12:22 | PCM.DC ---
Discharge Instructions Diet Discharge Diet: No restrictions Activity Discharge Activity: May Drive (once you are more than 24 hours out from surgery) and May Shower (once you are more than 24 hours out from surgery) May resume sexual activity in: 1 week (nothing in the vagina and no soaking in water) Weight Bearing Status: Weight bearing as tolerated Lifting Restrictions: none Dressing / Incision Call your doctor if you observe: Fever of 101 or Higher, Coldness, Increased Pain, Numbness or Tingling, Change in Color, Inability to urinate, Inability to have a bowel movement, Using more than 1 pad per hour, Shortness of breath, Dizziness, Fainting spells, Swelling in the ankles, Chest pain, Prolonged hiccupping, Increased palpitations (irregular heartbeat), Calf discomfort and Uncontrolled pain Cleanse incision/area with: Soap & Water Follow Up Care Please Follow Up With: Melisa Carmichael DO When: 1-2 weeks for post op Test Results: Test results from this visit will be discussed in further detail at your follow-up appointment, if applicable. Discharge Plan Admission Primary Reason for Your Visit: surgery Attending Provider: Meilsa Carmichael Primary Care Provider: Oscar Bañuelos Instructions Patient Instructions: Dilation and Curettage Print Language: Bulgarian Discharge Orders/Prescriptions Prescriptions: Continued atorvastatin 20 MG tablet 40 mg PO QHS Patient Comments: cholestrol metformin 1,000 MG tablet 500 mg PO DAILY Patient Comments: diabetes duloxetine 60 MG capsule 60 mg PO BID Patient Comments: fibromyalgia Mounjaro 2.5 mg/0.5 mL pen injector 12.5 mg subcut SA metoprolol succinate 25 mg tablet extended release 24 hr 25 mg PO QHS leflunomide 10 mg tablet 20 mg PO DAILY bupropion HCl 150 mg tablet extended release 24 hr 150 mg PO DAILY zolpidem [Ambien] 5 mg tablet 5 mg PO QHS PRN (Reason: sleep) Rx Instructions: may repeat once if no response in 30-60 minutes alprazolam 1 mg tablet 1 mg PO BID PRN PRN (Reason: anxiety) Humira(CF) Pen 40 mg/0.4 mL pen injector kit 40 mg subcut .Q2WEEK Referrals / Follow Up: Oscar Bañuelos DO [Primary Care Provider] - Disposition Disposition (needs filled in before D/C Order can be placed): Home, Self Care
[2024-04-04] MEDS: Lidocaine 1% /Epi 1:100 (20ml) 20 ML Vial (12:40)
--- NOTE | 2024-04-04 12:55 | PCM.OPRPT ---
Problems Associated Problem List Diagnoses (1) Endometrial polyp: Report of Operation Date of Procedure: 04/04/24 Pre-Operative Diagnosis: Endometrial polyp Post-Operative Diagnosis: As above Surgery/Procedure Performed:: Hysteroscopy, D&C, polypectomy Description of Surgical Findings:: 1 endometrial polyp noted originating at the left uterine fundus. Atrophic appearing endometrium. Normal appearing tubal ostia. Vagina atrophy noted and no uterine descent Surgeon: Melisa Carmichael word processing supervisor: None Type of Anesthesia: MAC Special Medications: None Specimen's removed: Endometrial polyp and curettings Drains: None Estimated Blood Loss (mL): < 20 Fluids Replaced: 650 cc fluid deficit Description of Procedure: Patient was taken the operating room MAC anesthesia was induced. She was prepped and draped in the dorsal lithotomy position using yellow fin stirrups. A weighted speculum was placed in the vagina to expose the cervix. The anterior lip of the cervix was grasped with a single-tooth tenaculum. 10 cc of local was injected circumferentially in the cervix. The cervix were serially dilated to accommodate the hysteroscope. The Symphion hysteroscope was advanced to the fundus of uterus, and normal saline was used to distend the uterine cavity. 1 endometrial polyp was noted, which was completely resected using the Symphion resection device. The cavity was then normal-appearing with atrophic endometrium, and bilateral tubal ostia were visualized. The hysteroscope was then removed. A sharp curettage was performed for scant tissue. The endometrial curettings and polyp were sent to pathology for review. Bleeding was hemostatic. All injuries removed from the vagina. Vaginal sweep was performed. Sponge counts were correct. The patient was taken recovery in stable condition. Grafts/Implants Used: None Procedure Start Time: 12:33 Procedure Stop Time: 12:51 Complications None Admit VTE Documentation VTE Present on Admission: No VTE Mechan Device Prophylaxis: SCD's
--- NOTE | 2024-04-04 13:01 | PCM.POST.ANE ---
Anesthesia: Postop Eval I Current Vital Signs Temperature: 97.1 F Pulse Rate: 91 Blood Pressure: 116/60 Respiratory Rate: 16 Pulse Ox: 96 Oxygen Delivery Method: Room Air Assessment Airway patent: Yes Spontaneous unlabored respirations: Yes Mental status: Awake and Calm nausea: No Vomiting: No Anesthesia Complication: No Fluid Hydration Crystalloid volume administer (ml): 800 Total IV fluid infused: 800 Progress Note Post-operative progress note: DENIES PAIN Anesthesia document: Postop Eval 1 completed: Yes
--- NOTE | 2024-04-04 14:48 | POSTOPAN2_ITS ---
Anesthesia Postop Eval I Sum Postop Eval Completion status Anesthesia document: Postop Eval 1 completed: Yes Anesthesia Postop Eval I Summary Anesthesia Postop Eval I Summary: Anesthesia Postop Eval I: Assessment Summary Airway patent Yes 04/04/24 13:02 [email or web address] [email or web address] Spontaneous unlabored Yes 04/04/24 13:02 CNC [email or web address] respirations Mental status Awake,Calm 04/04/24 13:02 [email or web address] [email or web address] nausea No 04/04/24 13:02 CNC MANAGER.[email or web address] Vomiting No 04/04/24 13:02 [facility]est[facility] Postop Eval I: Fluid Summary Crystalloid volume administer 800 04/04/24 13:02 CNC [email or web address] (ml) Colloids volume administered ( ml) Blood Product volume administered (ml) Total IV fluid infused 800 04/04/24 13:02 [facility] Anesthesia Postop Eval I: Summary Notes Anesthesia Complication No 04/04/24 13:02 [facility] Anesthesia Complication Comment: Post-operative progress note DENIES PAIN 04/04/24 13:02 [facility] Anesthesia: Postop Eval II Evaluation Mental status: Awake and Calm Pain Level: 0 nausea: No Vomiting: No Complications Anesthesia Complication: No
--- NOTE | 2024-04-04 14:48 | PCM.POSTANE2 ---
Anesthesia Postop Eval I Sum Postop Eval Completion status Anesthesia document: Postop Eval 1 completed: Yes Anesthesia Postop Eval I Summary Anesthesia Postop Eval I Summary: Anesthesia Postop Eval I: Assessment Summary Airway patent Yes 04/04/24 13:02 OIL SPOT [email or web address] Spontaneous unlabored Yes 04/04/24 13:02 OIL SPOT [email or web address] respirations Mental status Awake,Calm 04/04/24 13:02 OIL SPOT [email or web address] nausea No 04/04/24 13:02 OIL SPOT [email or web address].[email or web address] Vomiting No 04/04/24 13:02 [facility] Anest[facility] Postop Eval I: Fluid Summary Crystalloid volume administer 800 04/04/24 13:02 OIL SPOT [email or web address] (ml) Colloids volume administered ( ml) Blood Product volume administered (ml) Total IV fluid infused 800 04/04/24 13:02 [facility] Anesthesia Postop Eval I: Summary Notes Anesthesia Complication No 04/04/24 13:02 [facility] Anesthesia Complication Comment: Post-operative progress note DENIES PAIN 04/04/24 13:02 [facility] Anesthesia: Postop Eval II Evaluation Mental status: Awake and Calm Pain Level: 0 nausea: No Vomiting: No Complications Anesthesia Complication: No
== END 2024-04-04 13:38 | disposition home or self-care (01) ==
LOC: SDC 10:28 → AC 10:29
PROVIDERS: PCP Student in an Organized Health Care Education/Training Program; Referring Provider Obstetrics & Gynecology; Visit Provider Obstetrics & Gynecology
PROC: 0UB98ZZ Excision of Uterus, Via Natural or Artificial Opening Endoscopic (ICD-10-PCS; CPT 58558; principal; 2024-04-04 11:45)
DX: N84.0 Polyp of corpus uteri (principal); M06.9 Rheumatoid arthritis, unspecified; E11.22 Type 2 diabetes mellitus with diabetic chronic kidney disease; N18.30 Chronic kidney disease, stage 3 unspecified; D26.0 Other benign neoplasm of cervix uteri; I12.9 Hypertensive chronic kidney disease with stage 1 through stage 4 chronic kidney disease, or unspecified chronic kidney disease; E78.00 Pure hypercholesterolemia, unspecified; F32.A Depression, unspecified; F41.9 Anxiety disorder, unspecified; Z79.52 Long term (current) use of systemic steroids; Z79.84 Long term (current) use of oral hypoglycemic drugs; Z79.85 Long-term (current) use of injectable non-insulin antidiabetic drugs; Z79.899 Other long term (current) drug therapy
CPT/HCPCS: 58558; 00952; 80053; 85027; 86850; 86900; 86901; 88305; J7120; J2405